=== PATIENT | female | born 1990 | race African-American/Black ===

== ENCOUNTER 2017-10-12 15:22 | Emergency (ER) | payer OTHER ==
[2017-10-12 15:37] VITALS: BMI 41.9
[2017-10-12 18:17] VITALS: BP 100/62; PULSE 94; TEMP 98.2
== END 2017-10-12 20:00 | disposition home or self-care (01) ==
LOC: JER 15:22
DX: O26.893 Other specified pregnancy related conditions, third trimester (principal); R10.30 Lower abdominal pain, unspecified; Z3A.28 28 weeks gestation of pregnancy
CPT/HCPCS: 76815; 76819-TC; 99281-25